=== PATIENT | male | born 1990 | race American Indian/Alaskan Native ===

== ENCOUNTER 2017-09-30 08:00 | Emergency (ER) | payer SELFPAY ==
[2017-09-30 09:06] LABS: Bilirubin,Urine NEG (Negative); Blood,Urine NEG (Negative); Color,Urine Yellow (Yellow); Mucus,Urine FEW /HPF; Protein,Urine <15 mg/dL mg/dL (Negative); Urobilinogen,Urine < 2.0 mg/dL (<2.0); WBC,Urine < 1.0 /HPF (0.0-6.0)
[2017-09-30 09:09] LABS: Basophils % (Auto) 0.6 % (0.0-1.8); Eosinophils # (Auto) 0.2 K/mm3 (0.0-0.4); Eosinophils % (Auto) 5.3 % (0.0-4.3); Hematocrit 43.7 % (35.5-45.6); Hemoglobin 14.3 gm/dl (11.8-15.2); Lymphocytes # (Auto) 1.4 K/mm3 (1.2-5.4); Lymphocytes % (Auto) 33.5 % (13.4-35.0); Mean Corpuscular HGB Conc 33 % (32-34); Mean Corpuscular Hemoglobin 29 pg (28-32); Mean Corpuscular Volume 88 fl (84-94); Monocytes # (Auto) 0.5 K/mm3 (0.0-0.8); Monocytes % (Auto) 10.9 % (0.0-7.3); Platelet Count 236 K/mm3 (140-440); Red Blood Count 4.99 M/mm3 (3.65-5.03); Red Cell Distribution Width 13.7 % (13.2-15.2)
[2017-09-30 09:27] LABS: BUN/Creatinine Ratio 11; Blood Urea Nitrogen 10 mg/dL (9-20); Calcium 9.3 mg/dL (8.4-10.2); Hemolysis Index 8
[2017-09-30 09:30] LABS: Amphetamine Screen,Urine PRESUMPTIVE NEGATIVE; Benzodiazepines Screen,Urine PRESUMPTIVE NEGATIVE; Cannabinoid Screen,Urine PRESUMPTIVE NEGATIVE; Cocaine Screen,Urine PRESUMPTIVE NEGATIVE; Methadone Screen,Urine PRESUMPTIVE NEGATIVE; Opiate Screen,Urine PRESUMPTIVE NEGATIVE
--- NOTE | 2017-09-30 11:32 | Emergency Department Report ---
ED Psych HPI - General Chief Complaint: Psych Stated Complaint: SUICIDAL THOUGHTS Time Seen by Provider: 09/30/17 11:27 Source: patient Mode of arrival: Ambulatory - History of Present Illness Initial Comments: Patient is 26 years old male with history of depression and possible PTSD. Patient presented to the ER accompanied by his mother for psychiatric evaluation. Patient stated that he is having suicidal thoughts since yesterday mother stated that he came home from work yesterday and he started saying that he would kill himself and he is feeling very depressed. Patient does have a plan he stated that he wanted to crash his car. He stated that he had one episode of suicidal attempt last year by overdosing on medication. He denied taking any overdoses time. He also admitted over hearing voice. No visual hallucination. MD Complaint: suicidal ideation, feels depressed -: days(s) Associated Psychiatric Symptoms: depression, suicidal ideation, auditory hallucinations History of same: Yes Quality: constant Improves With: none Associated Symptoms: denies other symptoms Treatments Prior to Arrival: none If Self Harm: admits thoughts of, has plan, self-inflicted trauma - Related Data Allergies Allergy/AdvReac Type Severity Reaction Status Date / Time pollen extracts Allergy Swelling Verified 09/30/17 08:06 shellfish derived Allergy Angioedema Verified 09/30/17 08:06 ED Review of Systems ROS: Stated complaint: SUICIDAL THOUGHTS Other details as noted in HPI Comment: All other systems reviewed and negative ENT: denies: throat pain Respiratory: denies: cough Cardiovascular: denies: chest pain Gastrointestinal: denies: abdominal pain, nausea, vomiting Neurological: denies: headache, weakness, numbness, paresthesias, confusion, abnormal gait Psychiatric: anxiety, depression, auditory hallucinations, suicidal thoughts. denies: visual hallucinations, homicidal thoughts ED Past Medical Hx - Past Medical History Previous Medical History?: Yes Hx Psychiatric Treatment: Yes (anxiety) - Surgical History Past Surgical History?: No - Social History Smoking Status: Current Every Day Smoker Substance Use Type: Alcohol ED Physical Exam - General Limitations: No Limitations General appearance: alert, in no apparent distress - Head Head exam: Present: atraumatic, normocephalic, normal inspection - ENT ENT exam: Present: normal exam, normal orophraynx, mucous membranes moist - Neck Neck exam: Present: normal inspection, full ROM. Absent: tenderness, meningismus, lymphadenopathy, thyromegaly - Respiratory Respiratory exam: Present: normal lung sounds bilaterally. Absent: respiratory distress, wheezes, rales, rhonchi, chest wall tenderness, accessory muscle use, decreased breath sounds, prolonged expiratory - Cardiovascular Cardiovascular Exam: Present: regular rate, normal rhythm, normal heart sounds - GI/Abdominal GI/Abdominal exam: Present: soft, normal bowel sounds. Absent: distended, tenderness, guarding, rebound, rigid, organomegaly, mass, bruit, pulsatile mass , hernia - Extremities Exam Extremities exam: Present: normal inspection, full ROM, normal capillary refill. Absent: joint swelling, calf tenderness - Back Exam Back exam: Present: normal inspection, full ROM. Absent: CVA tenderness (R), CVA tenderness (L), muscle spasm - Neurological Exam Neurological exam: Present: alert, oriented X3, CN II-XII intact, normal gait, reflexes normal. Absent: abnormal gait, motor sensory deficit - Psychiatric Psychiatric exam: Present: depressed, suicidal ideation. Absent: agitated, anxious, flat affect, manic, homicidal ideation - Skin Skin exam: Present: warm, intact, normal color ED Course Vital Signs 09/30/17 08:06 Temperature 98.0 F Pulse Rate 72 Respiratory 18 Rate Blood Pressure 114/46 O2 Sat by Pulse 100 Oximetry ED Medical Decision Making - Lab Data Result diagrams: 09/30/17 08:47 09/30/17 08:47 Critical care attestation.: If time is entered above; I have spent that time in minutes in the direct care of this critically ill patient, excluding procedure time. ED Disposition Clinical Impression: Depression, Suicidal ideation Disposition: [id number]/TX-[id number] PSY HOSP/PSY UNIT Is pt being admited?: No Condition: Stable Referrals: PRIMARY CARE, [Primary Care Provider] - 3-5 Days
--- NOTE | 2017-10-01 15:07 | Consultation ---
History of Present Illness - Reason for Consult Consult date: 10/01/17 Reason for consult: Mental Health Evaluation Requesting physician: RALPH HICKS - Chief Complaint Chief complaint: "I have a lot going on mentally" - History of Present Psychiatric Illness 26 years old AA male presenting to the ER for SI's with a plan. Today the patient is calm and cooperative during the assessment. He stated feeling "weird and depressed" for several weeks. He stated that his racing thoughts and not being able to sleep has caused him to be depressed. He stated that he feel fearful during social gatherings. He stated experiencing the same "mental state " about 4 yrs ago. He stated that he is seen by [facility] for outpatient psy services and took Prozac for a short period of time. He stated that he feels that the Prozac doesn't work. He stated that he planned to crash his vehicle to kill himself yesterday. He would not confirm or deny being suicidal when asked. He admitted to a previous suicide attempt, but wouldn't state what he did. He rate his depression 7/10, with 10 being the worse. He denies HI's and VH's. He does acknowledge intermittent AH's. He denies a poor appetite. He denies recreational drug use and alcohol consumption (etoh). Medications and Allergies Allergies Allergy/AdvReac Type Severity Reaction Status Date / Time pollen extracts Allergy Swelling Verified 09/30/17 08:06 shellfish derived Allergy Angioedema Verified 09/30/17 08:06 Home Medications Medication Instructions Recorded Confirmed Last Taken Type FLUoxetine [PROzac] 20 mg PO QDAY 09/30/17 09/30/17 Unknown History Past psychiatric history - Past Medical History Past Medical History: No medical history Past Surgical History: No surgical history - past Psychiatric treatment and history psychiatric treatment history: Seen at [facility] for outpatient psy services. Acknowledged a fam psy hx of Bipolar DO. - Social History Social history: lives with family Mental Status Exam - Vital signs Last Vital Signs Temp 98.0 F 10/01/17 11:27 Pulse 64 10/01/17 11:27 Resp 18 10/01/17 11:27 BP 109/53 10/01/17 11:27 Pulse Ox 99 10/01/17 11:27 - Exam Narrative exam: MSE: Appearance: calm, cooperative Behavior: regular eye contact Speech: regular rate and tone Mood: "depressed" Affect: congruent to mood Thought Process: circumstantial Thought Content: denies HI's and AVH's, cannot confirm or deny SI's, intermittent AH's, paranoia Motor Activity: sitting up in bed Cognition: A/O x 3 Insight: variable Judgment: variable Results Result Diagrams: 09/30/17 08:47 09/30/17 08:47 All other labs normal. Assessment and Plan Assessment and plan: Impression: Unspecified Mood DO with psy features. Today the patient is calm and cooperative during the assessment. UDS is negative. DDx: Bipolar DO, MDD with psychosis Recommendation/Plan: Continue 1013 with placement to inpatient psy services. Start Seroquel 200 mg PO HS for mood/psychosis. Discussed possible metabolic side effects of Seroqel with patient.
--- NOTE | 2017-10-02 12:37 | Progress Note ---
Subjective - Reason for Consult Consult date: 10/02/17 Reason for consult: Psychiatry Follow-up - Chief Complaint Chief complaint: "I finally slept" 26 years old AA male presenting to the ER for SI's with a plan. Today the patient is calm and cooperative during the assessment. He stated that he finally slept the entire night for the first time in several weeks. He stated that his SI's has "decreased." He stated that he want to get his life together and be productive. He denies HI's and AVH's. He denies any side effects of his medication. Mental Status Exam - Vital signs Last Vital Signs Temp 97.8 F 10/01/17 20:45 Pulse 88 10/01/17 20:45 Resp 16 10/01/17 20:45 BP 113/67 10/01/17 20:45 Pulse Ox 99 10/01/17 20:45 - Exam Narrative exam: MSE: Appearance: calm, cooperative Behavior: regular eye contact Speech: regular rate and tone Mood: "better" Affect: congruent to mood Thought Process: circumstantial Thought Content: denies HI's and AVH's, SI's has decreased Motor Activity: sitting up in bed Cognition: A/O x 3 Insight: variable Judgment: variable Assessment and Plan Impression: Unspecified Mood DO with psy features. Today the patient is calm and cooperative during the assessment. UDS is negative. The patient SI's has decreased. DDx: Bipolar DO, MDD with psychosis Recommendation/Plan: Continue 1013 with placement to inpatient psy services. Continue Seroquel 200 mg PO HS for mood/psychosis. Discussed possible metabolic side effects of Seroqel with patient.
[2017-10-02 14:35] VITALS: BP 106/58
== END 2017-10-02 20:13 ==
LOC: EEVIPCON 08:00 → ED 08:00
DX: F32.9 Major depressive disorder, single episode, unspecified (principal); F41.9 Anxiety disorder, unspecified; F17.200 Nicotine dependence, unspecified, uncomplicated; Z91.013 Allergy to seafood; Z91.09 Other allergy status, other than to drugs and biological substances
CPT/HCPCS: 36415; 80048; 80307; 81001; 85025; 99285; G0480; 80320

== ENCOUNTER 2019-12-20 16:46 | Emergency (ER) | payer SELFPAY ==
[2019-12-20 17:28] VITALS: BP 108/70
== END 2019-12-21 07:00 | disposition left against medical advice (07) ==
LOC: ED 16:46
DX: R45.851 Suicidal ideations (principal); Z53.21 Procedure and treatment not carried out due to patient leaving prior to being seen by health care provider